=== PATIENT | female | born 1975 | race Asian ===

== ENCOUNTER 2024-04-18 06:14 | Day surgery (SDC) | payer OTHER, SELFPAY | END 2024-04-18 14:11 | disposition home or self-care (01) | LOC: GI 06:14 | PROVIDERS: ATTENDING PHYSICIAN Internal Medicine | DX: Z12.11 Encounter for screening for malignant neoplasm of colon (principal); D12.5 Benign neoplasm of sigmoid colon; K63.5 Polyp of colon | CPT/HCPCS: 45385; 45380; 88305 ==

== ENCOUNTER → 2024-07-09 07:36 | Outpatient (REF) | payer OTHER, SELFPAY | LOC: HWWDC 07:36 | PROVIDERS: ATTENDING PHYSICIAN Nurse Practitioner | DX: Z12.31 Encounter for screening mammogram for malignant neoplasm of breast (principal) | CPT/HCPCS: 77063; 77067 ==